=== PATIENT | male | born 1935 | race Asian ===

== ENCOUNTER → 2018-03-03 | Outpatient (CLI) | payer MEDICARE, MEDICAID ==
[~2018-03-03] MED LIST: ATOR10TA9 PO; CLOP75TA PO; CYAN1TAB29 PO; FINA5TAB4 PO; FISH1CAP PO; PYRI100T2 PO; TAMS-11 PO
[2018-03-03 09:31] LABS: MICROSCOPIC AUTO
== END | disposition home or self-care (01) ==
LOC: STAR 08:06
PROVIDERS: ATTEND Urology
DX: Z01.818 Encounter for other preprocedural examination (principal); D49.4 Neoplasm of unspecified behavior of bladder; I51.7 Cardiomegaly
CPT/HCPCS: 81001; 87077; 87086; 87186; 93005